=== PATIENT | female | born 1945 | race Caucasian/White ===

== ENCOUNTER 2024-11-07 12:07 | Emergency (ER) | payer SELFPAY ==
[~2024-11-07] VITALS: Ht 162.6 cm; Wt 53.0 kg
[2024-11-07 12:43] VITALS: BP 171/85
[2024-11-07 13:00] VITALS: BP 154/81
[2024-11-07 13:01] LABS: URINE BILIRUBIN - DIPSTICK Negative (NEGATIVE); URINE BLOOD DIPSTICK Moderate (NEGATIVE); URINE COLOR Yellow; URINE GLUCOSE - DIPSTICK Negative (NEGATIVE); URINE KETONE Negative (NEGATIVE); URINE LEUK ESTERASE Small (NEGATIVE); URINE NITRITE - DIPSTICK Negative (Negative); URINE PROTEIN - DIPSTICK 100 mg/dL (NEG-TRACE); URINE SPECIFIC GRAVITY 1.015; URINE UROBILINOGEN - DIPSTICK 0.2 E.U./dL (0.2)
[2024-11-07 13:12] LABS: URINE BACTERIA MODERATE hpf; URINE SQUAMOUS EPITHELIAL CELL RARE EPI/hpf (0-FEW)
[2024-11-07] MEDS ORDERED: CEPHALEXIN MONOHYDRATE 500 MG/CAP PO ONE (13:15)
[2024-11-07] MEDS ORDERED: KEFLEX500 MG PO (13:20)
[2024-11-07 13:26] VITALS: BP 171/85
[2024-11-09] MEDS ORDERED: MACROBID100 M1 PO (09:31)
== END 2024-11-07 13:29 | disposition home or self-care (01) | DRG 690 ==
LOC: ED 12:07
PROVIDERS: Family Medicine
DX: N39.0 Urinary tract infection, site not specified (principal); B96.20 Unspecified Escherichia coli [E. coli] as the cause of diseases classified elsewhere; R31.9 Hematuria, unspecified; F03.90 Unspecified dementia, unspecified severity, without behavioral disturbance, psychotic disturbance, mood disturbance, and anxiety